=== PATIENT | female | born 1960 ===

== ENCOUNTER 2016-12-26 13:14 | Emergency (ER) | payer OTHER ==
[2016-12-26 13:21] VITALS: BP 166/91; PULSE 84; RESP 18; O2SAT 99
--- NOTE | 2016-12-26 15:01 | ED PDOC ---
Lower Extremity Pain/Injury Time Seen by Provider: 12/26/16 13:40 Chief Complaint (Nursing): Lower Extremity Problem/Injury Chief Complaint (Provider): Left Foot Pain History Per: Patient, Lactation Consultant (#[id number]) History/Exam Limitations: no limitations Onset/Duration Of Symptoms: Days (x 2 months) Current Symptoms Are (Timing): Still Present Additional Complaint(s): Emilie is a 56 year old female patient who presents to the ED complaining of left foot pain for the past 2 months, which is worsen today. The pain is now intolerable and is having difficulty walking. Emilie has not seen her PCP with regards to pain. Patient states she has been taking ibuprofen for the pain with some relief. Denies any injuries to the areas. PMD: Provider TBD Past Medical History Reviewed: Historical Data, Nursing Documentation, Vital Signs Vital Signs: Last Vital Signs Temp Pulse 84 12/26/16 13:19 Resp 18 12/26/16 13:19 BP 166/91 H 12/26/16 13:19 Pulse Ox 99 12/26/16 13:19 - Medical History PMH: Diabetes, Hypothyroidism - Surgical History Surgical History: Cholecystectomy, Other surgeries: Breast biopsy, foot surgery, left shoulder surgery - Family History Family History: States: Unknown Family Hx - Social History Current smoker - smoking cessation education provided: No Alcohol: None Drugs: Denies - Home Medications Home Medications: Ambulatory Orders Medication Instructions Recorded Levothyroxine Sodium [Levo-T] 1 tab PO DAILY 10/19/15 Metformin HCl [Glucophage] 1 tab PO BID 10/19/15 - Allergies Allergies/Adverse Reactions: Allergies Allergy/AdvReac Type Severity Reaction Status Date / Time No Known Allergies Allergy Unverified 10/19/15 10:53 Review of Systems ROS Statement: Except As Marked, All Systems Reviewed And Found Negative Musculoskeletal: Positive for: Foot Pain (Left) Physical Exam - Reviewed Nursing Documentation Reviewed: Yes Vital Signs Reviewed: Yes - Physical Exam Appears: Positive for: Well, Non-toxic, No Acute Distress Head Exam: Positive for: ATRAUMATIC, NORMAL INSPECTION, NORMOCEPHALIC Skin: Positive for: Normal Color, Warm, Dry Eye Exam: Positive for: Normal appearance Neck: Positive for: Normal Respiratory: Negative for: Respiratory Distress Pulses-Dorsalis Pedis (L): 2+ Pulses-Dorsalis Pedis (R): 2+ Extremity: Positive for: Tenderness (to the Achilles attachment of left foot), Capillary Refill (less than 2 seconds). Negative for: Pedal Edema, Deformity Neurologic/Psych: Positive for: Alert, Oriented - ECG O2 Sat by Pulse Oximetry: 99 (RA) Pulse Ox Interpretation: Normal Medical Decision Making Medical Decision Making: Time: 14:55 Initial Plan: - X-ray Left Ankle - Solu-medrol 125 mg IM Tendonitis Scribe Attestation: Documented by Jasiel Banerjee, acting as a scribe for Elena Delacruz PA-C Provider Scribe Attestation: All medical record entries made by the Scribe were at my direction and personally dictated by me. I have reviewed the chart and agree that the record accurately reflects my personal performance of the history, physical exam, medical decision making, and the department course for this patient. I have also personally directed, reviewed, and agree with the discharge instructions and disposition. Disposition - Clinical Impression Clinical Impression: Tendonitis - Patient ED Disposition Is Patient to be Admitted: No Counseled Patient/Family Regarding: Diagnosis, Need For Followup - Disposition Disposition: Routine/Home Disposition Time: 16:36 Condition: GOOD Additional Instructions: Ice, elevation, stretching. Instructions: Achilles Tendinitis (ED) Forms: [employer] (ML4D) Connect (Sinhala) Print Language: [place]
--- NOTE | 2016-12-26 16:51 | RAD ---
PROCEDURE: Left Ankle Radiographs. HISTORY: left posterior ankle pain, no trauma COMPARISON: None FINDINGS: BONES: No fracture. Plantar calcaneal spur. Entheseal ossification at the Achilles tendon insertion on the posterior calcaneus. JOINTS: Normal. No osteoarthritis. Ankle mortise maintained. Talar dome intact SOFT TISSUES: Normal. OTHER FINDINGS: None. IMPRESSION: No fracture. Plantar calcaneal spur.
== END 2016-12-26 17:03 | disposition home or self-care (01) ==
LOC: H.ER 13:14
DX: M77.52 Other enthesopathy of left foot and ankle (principal); E11.9 Type 2 diabetes mellitus without complications; E03.9 Hypothyroidism, unspecified
CPT/HCPCS: 73600; 96372; 99283; J2930

== ENCOUNTER 2017-07-10 12:11 | Emergency (ER) | payer OTHER, SELFPAY ==
[2017-07-10 12:21] VITALS: BMI 24.7
[2017-07-10 12:22] VITALS: RESP 19
[2017-07-10] MEDS ORDERED: Sodium Chloride 0.9% 1,000 ML IV STA (13:27)
[2017-07-10 13:48] LABS: BASO % 0.8 % (0.0-2.0); EOS # 0.1 K/uL (0.0-0.7); EOS % 2.7 % (0.0-4.0); HEMOGLOBIN 13.4 g/dL (12.0-16.0); LYMPH # 2.2 K/uL (1.0-4.3); LYMPH % 44.6 % (20.0-40.0); MEAN CELL VOLUME 89.3 fl (81.0-99.0); MEAN CORPUSCULAR HEMOGLOBIN 31.3 pg (27.0-31.0); MEAN CORPUSCULAR HGB CONC 35.1 g/dL (33.0-37.0); MONO # 0.3 K/uL (0.0-0.8); MONO % 6.7 % (0.0-10.0); NEUT # 2.2 K/uL (1.8-7.0); NEUT % 45.2 % (50.0-75.0); NRBC % 0.1 % (0.0-0.0); RBC 4.28 Mil/uL (3.80-5.20); RED CELL DISTRIBUTION WIDTH 13.1 % (11.5-14.5); WHITE BLOOD COUNT 4.9 K/uL (4.8-10.8)
[2017-07-10 13:55] LABS: INR 1.1 (0.9-1.2); PROTHROMBIN TIME 11.7 Seconds (9.8-13.1)
[2017-07-10 13:58] LABS: SQUAMOUS EPITHIAL < 1 /hpf (0-5); URINE BACTERIA RARE (<OCC); URINE BILIRUBIN NEGATIVE (NEGATIVE); URINE BLOOD NEGATIVE (NEGATIVE); URINE CLARITY CLEAR (Clear); URINE COLOR STRAW (YELLOW); URINE GLUCOSE (UA) 50 mg/dL (Normal); URINE LEUKOCYTE ESTERASE NEG Leu/uL (Negative); URINE PROTEIN NEGATIVE (NEGATIVE); URINE UROBILINOGEN 0.2-1.0 mg/dL (0.2-1.0)
[2017-07-10 13:59] LABS: ALB/GLOB RATIO 1.2 (1.0-2.1); ALBUMIN 4.4 g/dL (3.5-5.0); CALCIUM 8.7 mg/dL (8.4-10.2); GFR AFRICAN-AMERICAN > 60; GFR NON-AFRICAN AMERICAN > 60; LIPASE 105 U/L (23-300)
[2017-07-10 14:00] LABS: ALT/SGPT 53 U/L (9-52); AST/SGOT 38 U/L (14-36); BLOOD UREA NITROGEN 11 mg/dl (7-17)
[2017-07-10] MEDS ORDERED: Iohexol 300 100 ML IJ ONE (14:34)
[2017-07-10] MEDS ORDERED: Sodium Chloride 0.9% 100 ML ONE (14:36)
--- NOTE | 2017-07-10 14:47 | ED PDOC ---
HPI: Abdomen Time Seen by Provider: 07/10/17 12:56 Chief Complaint (Nursing): Abdominal Pain Chief Complaint (Provider): Abdominal pain History Per: Patient History/Exam Limitations: no limitations Onset/Duration Of Symptoms: Days (1) Additional Complaint(s): Pt reports R sided abdominal pain X 1 day, intermittent, associated with nausea. Denies fever, vomiting, constipation, diarrhea, symptoms. Past Medical History Reviewed: Nursing Documentation, Vital Signs Vital Signs: Last Vital Signs Temp 97.8 F 07/10/17 12:21 Pulse 81 07/10/17 12:21 Resp 19 07/10/17 12:21 BP 173/83 H 07/10/17 12:21 Pulse Ox 97 07/10/17 14:55 - Medical History PMH: Diabetes, HTN, Hypothyroidism Denies: Anxiety, Bipolar Disorder, Depression, Hyperthyroidism, Paranoia, Post Traumatic Stress Disorder, Chronic Kidney Disease, Schizophrenia - Surgical History Surgical History: Cholecystectomy, Denies: Appendectomy, CABG, Carotid Endarterectomy, Coronary Stent, Endoscopy , Pacemaker, Tonsillectomy - Family History Family History: States: Unknown Family Hx - Social History Current smoker - smoking cessation education provided: No - Home Medications Home Medications: Ambulatory Orders Medication Instructions Recorded Atorvastatin [Lipitor] 20 mg PO HS #0 tab 08/18/15 Ciprofloxacin HCl [Cipro] 500 mg PO Q12 #0 tablet 08/18/15 Docusate [Colace] 100 mg PO BID #0 cap 08/18/15 Levothyroxine [Synthroid] 100 mcg PO DAILY #0 tab 08/18/15 Metronidazole [Flagyl] 500 mg PO Q8H #0 tab 08/18/15 Ondansetron [Zofran Tab] 4 mg PO Q6H #4 tab 08/18/15 metFORMIN [glucOPHAGE] 500 mg PO BID #0 tab 08/18/15 oxyCODONE/Acetaminophen [Percocet 1 tab PO Q4 PRN #0 tab 08/18/15 5/325 mg Tab] Methylprednisolone [Medrol Dose 4 mg PO DAILY #21 mg 08/31/15 Pack (21 tabs)] hydrOXYzine HCl [Atarax] 25 mg PO Q8H #12 tab 08/31/15 Levothyroxine Sodium [Levo-T] 1 tab PO DAILY 10/19/15 Metformin HCl [Glucophage] 1 tab PO BID 10/19/15 Dicyclomine [Bentyl] 20 mg PO Q12 PRN #20 tab 12/02/15 Ondansetron ODT [Zofran ODT] 4 mg PO Q6 PRN #16 odt 12/02/15 Ibuprofen [Motrin] 1 tab PO TID PRN #30 tab 02/02/16 Ibuprofen [Motrin] 600 mg PO Q6H PRN #20 tab 07/10/17 - Allergies Allergies/Adverse Reactions: Allergies Allergy/AdvReac Type Severity Reaction Status Date / Time acetaminophen [From Percocet] Allergy RASH Verified 08/31/15 17:02 oxycodone HCl [From Percocet] Allergy RASH Verified 08/31/15 17:02 Review of Systems Constitutional: Negative for: Fever, Chills Cardiovascular: Negative for: Chest Pain, Palpitations Respiratory: Negative for: Cough, Shortness of Breath Gastrointestinal: Positive for: Nausea, Abdominal Pain. Negative for: Vomiting , Diarrhea Genitourinary Female: Negative for: Dysuria, Hematuria, Vaginal Discharge, Vaginal Bleeding Musculoskeletal: Negative for: Neck Pain, Back Pain Skin: Negative for: Rash, Lesions Neurological: Negative for: Headache Physical Exam - Reviewed Nursing Documentation Reviewed: Yes Vital Signs Reviewed: Yes - Physical Exam Appears: Positive for: Well, No Acute Distress Skin: Positive for: Normal Color, Warm, Dry Eye Exam: Positive for: Normal appearance, EOMI, PERRL Cardiovascular/Chest: Positive for: Regular Rate, Rhythm Respiratory: Positive for: Normal Breath Sounds Gastrointestinal/Abdominal: Positive for: Bowel Sounds, Tenderness (RUQ). Negative for: Mass, Distended, Guarding, Rebound Back: Positive for: Normal Inspection Extremity: Positive for: Normal ROM Neurologic/Psych: Positive for: Alert, Oriented - Laboratory Results Result Diagrams: 07/10/17 13:35 07/10/17 13:35 - ECG Interpretation Of ECG: NSR @ 69, no ST-T changes. O2 Sat by Pulse Oximetry: 97 Pulse Ox Interpretation: Normal Medical Decision Making Medical Decision Makin yo female with RUQ pain, s/p cholecystectomy. - labs - EKG - CT abd/pelvis - IVF - Zofran Accession No. : [id number] Patient Name / ID : HIRAM FERRARI / [id number] Exam Date : 07/10/2017 14:41:40 ( Approved ) Study Comment : Sex / Age : F / 56Y Creator : Robin Man MD Dictator : Robin Man MD [employer] Consultant : [employer] Consultant : Robin Man MD Approver2 : Report Date : 07/10/2017 15:48:06 My Comment : PROCEDURE: CT Abdomen and Pelvis with contrast HISTORY: RUQ pain, h/o cholecystectomy COMPARISON: Abdomen pelvis CT with contrast 12/02/2015. TECHNIQUE: Contrast dose: Omnipaque 300, 95 cc Radiation dose: Total exam DLP = 358.25 mGy-cm. This CT exam was performed using one or more of the following dose reduction techniques: Automated exposure control, adjustment of the mA and/or kV according to patient size, and/or use of iterative reconstruction technique. FINDINGS: LOWER THORAX: Stable fibrotic changes are appreciate the right lower lobe abutting a focal area of pleural thickening laterally once again. LIVER: Diffuse fatty infiltration liver is reiterated. No definitive mass is seen or intrahepatic biliary dilatation. GALLBLADDER AND BILE DUCTS: Prior cholecystectomy reiterated. PANCREAS: Unremarkable. No gross lesion or ductal dilatation. SPLEEN: Unremarkable. ADRENALS: Unremarkable. No mass. KIDNEYS AND URETERS: 1.4 cm lucency seen at the midpole right kidney once again measuring 50 Hounsfield units likely reflecting a hyperdense cyst. Given this has not changed in size in over urine half, this is likely a benign process. Question a follow-up MRI without gadolinium is advised for more definitive characterization of this finding. The bilateral kidneys otherwise unremarkable. VASCULATURE: Unremarkable. No aortic aneurysm. BOWEL: Relatively prominent fecal loading may indicate an element of constipation. No obstruction. No gross mural thickening. APPENDIX: Normal appendix. PERITONEUM: Minimal perineum occupy small umbilical and periumbilical hernias which slightly larger in the interval. The neck of the paraumbilical hernia measures 1.7 cm within neck of the umbilical hernia measuring 1.2 cm. No free fluid. No free air. LYMPH NODES: Unremarkable. No enlarged lymph nodes. BLADDER: Unremarkable. REPRODUCTIVE: Unremarkable. BONES: No acute fracture. OTHER FINDINGS: None. IMPRESSION: 1. Prior cholecystectomy reiterated. Extensive diffuse fatty infiltration is seen throughout the liver once again. No definite biliary tree dilatation appreciable. 2. 1.4 cm lucency midpole right kidney with Hounsfield unit measurement suggesting possible complex cyst. It is not changed in size in over urine half however follow-up MRI is advised with and without contrast electively, for more definitive characterization. 3. Tiny umbilical and periumbilical hernias as discussed above. Copy of CT report given to patient for incidental findings. Disposition - Clinical Impression Clinical Impression: Abdominal pain in female - Disposition Referrals: [facility] [Outside] Disposition: Routine/Home Disposition Time: 16:02 Condition: IMPROVED Prescriptions: Ibuprofen [Motrin] 600 mg PO Q6H PRN #20 tab PRN Reason: Pain, Moderate (4-7) Instructions: Acute Abdomen (Belly Pain) Forms: [employer]by ([place] Islander), walkby (Swedish) Print Language: PARAGUAYAN
--- NOTE | 2017-07-10 15:50 | CT ---
PROCEDURE: CT Abdomen and Pelvis with contrast HISTORY: RUQ pain, h/o cholecystectomy COMPARISON: Abdomen pelvis CT with contrast 12/02/2015. TECHNIQUE: Contrast dose: Omnipaque 300, 95 cc Radiation dose: Total exam DLP = 358.25 mGy-cm. This CT exam was performed using one or more of the following dose reduction techniques: Automated exposure control, adjustment of the mA and/or kV according to patient size, and/or use of iterative reconstruction technique. FINDINGS: LOWER THORAX: Stable fibrotic changes are appreciate the right lower lobe abutting a focal area of pleural thickening laterally once again. LIVER: Diffuse fatty infiltration liver is reiterated. No definitive mass is seen or intrahepatic biliary dilatation. GALLBLADDER AND BILE DUCTS: Prior cholecystectomy reiterated. PANCREAS: Unremarkable. No gross lesion or ductal dilatation. SPLEEN: Unremarkable. ADRENALS: Unremarkable. No mass. KIDNEYS AND URETERS: 1.4 cm lucency seen at the midpole right kidney once again measuring 50 Hounsfield units likely reflecting a hyperdense cyst. Given this has not changed in size in over urine half, this is likely a benign process. Question a follow-up MRI without gadolinium is advised for more definitive characterization of this finding. The bilateral kidneys otherwise unremarkable. VASCULATURE: Unremarkable. No aortic aneurysm. BOWEL: Relatively prominent fecal loading may indicate an element of constipation. No obstruction. No gross mural thickening. APPENDIX: Normal appendix. PERITONEUM: Minimal perineum occupy small umbilical and periumbilical hernias which slightly larger in the interval. The neck of the paraumbilical hernia measures 1.7 cm within neck of the umbilical hernia measuring 1.2 cm. No free fluid. No free air. LYMPH NODES: Unremarkable. No enlarged lymph nodes. BLADDER: Unremarkable. REPRODUCTIVE: Unremarkable. BONES: No acute fracture. OTHER FINDINGS: None. IMPRESSION: 1. Prior cholecystectomy reiterated. Extensive diffuse fatty infiltration is seen throughout the liver once again. No definite biliary tree dilatation appreciable. 2. 1.4 cm lucency midpole right kidney with Hounsfield unit measurement suggesting possible complex cyst. It is not changed in size in over urine half however follow-up MRI is advised with and without contrast electively, for more definitive characterization. 3. Tiny umbilical and periumbilical hernias as discussed above.
[2017-07-10 16:30] VITALS: BP 128/76; PULSE 78; TEMP 97; O2SAT 98
--- NOTE | 2017-07-13 12:11 | CARD ---
APPROVED REPORT EKG Measurement Heart [id number] SD 150P60 [id number] <Conclusion> Normal sinus rhythm Left axis deviation Abnormal ECG
== END 2017-07-10 16:31 | disposition home or self-care (01) ==
LOC: H.ER 12:11
DX: K76.0 Fatty (change of) liver, not elsewhere classified (principal); N28.1 Cyst of kidney, acquired; K42.9 Umbilical hernia without obstruction or gangrene; E03.9 Hypothyroidism, unspecified; E11.9 Type 2 diabetes mellitus without complications; I10 Essential (primary) hypertension; Z79.84 Long term (current) use of oral hypoglycemic drugs; Z88.5 Allergy status to narcotic agent; Z90.49 Acquired absence of other specified parts of digestive tract
CPT/HCPCS: 74177; 80053; 81003; 82948; 83690; 85025; 85610; 85730; 93005; 96374; 99283; J2405; J7040; Q9967

== ENCOUNTER 2018-01-15 14:28 | Emergency (ER) | payer SELFPAY ==
[2018-01-15 14:28] VITALS: BMI 24.7
[2018-01-15] MEDS ORDERED: Sodium Chloride 0.9% 1,000 ML IV STA (15:01)
--- NOTE | 2018-01-15 15:04 | ED PDOC ---
HPI: Abdomen Time Seen by Provider: 01/15/18 14:56 Chief Complaint (Nursing): Abdominal Pain History Per: Patient Onset/Duration Of Symptoms: Days (1) Current Symptoms Are (Timing): Still Present Severity: Mild Pain Scale Rating Of: 3 Location Of Pain/Discomfort: Epigastric Quality Of Discomfort: Sharp Associated Symptoms: denies: Fever, Nausea, Vomiting, Diarrhea Exacerbating Factors: None Alleviating Factors: None Additional Complaint(s): Sharp epigastric abd pain radiating to back since this AM. Denies NVD. Denies fever. Denies blood instool. Made worse by food. Past Medical History Vital Signs: Last Vital Signs Temp 98.5 F 01/15/18 14:47 Pulse 87 01/15/18 14:47 Resp BP 144/88 01/15/18 14:47 Pulse Ox 96 01/15/18 14:47 - Medical History PMH: Diabetes, HTN, Hypothyroidism Denies: Anxiety, Bipolar Disorder, Depression, Hyperthyroidism, Paranoia, Post Traumatic Stress Disorder, Chronic Kidney Disease, Schizophrenia - Surgical History Surgical History: Cholecystectomy, Denies: Appendectomy, CABG, Carotid Endarterectomy, Coronary Stent, Endos copy, Pacemaker, Tonsillectomy - Family History Family History: States: Unknown Family Hx - Home Medications Home Medications: Ambulatory Orders Medication Instructions Recorded Atorvastatin [Lipitor] 20 mg PO HS #0 tab 08/18/15 Ciprofloxacin HCl [Cipro] 500 mg PO Q12 #0 tablet 08/18/15 Docusate [Colace] 100 mg PO BID #0 cap 08/18/15 Levothyroxine [Synthroid] 100 mcg PO DAILY #0 tab 08/18/15 Metronidazole [Flagyl] 500 mg PO Q8H #0 tab 08/18/15 Ondansetron [Zofran Tab] 4 mg PO Q6H #4 tab 08/18/15 metFORMIN [glucOPHAGE] 500 mg PO BID #0 tab 08/18/15 oxyCODONE/Acetaminophen [Percocet 1 tab PO Q4 PRN #0 tab 08/18/15 5/325 mg Tab] Methylprednisolone [Medrol Dose 4 mg PO DAILY #21 mg 08/31/15 Pack (21 tabs)] hydrOXYzine HCl [Atarax] 25 mg PO Q8H #12 tab 08/31/15 Levothyroxine Sodium [Levo-T] 1 tab PO DAILY 10/19/15 Metformin HCl [Glucophage] 1 tab PO BID 10/19/15 Dicyclomine [Bentyl] 20 mg PO Q12 PRN #20 tab 12/02/15 Ondansetron ODT [Zofran ODT] 4 mg PO Q6 PRN #16 odt 12/02/15 Ibuprofen [Motrin] 1 tab PO TID PRN #30 tab 02/02/16 Ibuprofen [Motrin] 600 mg PO Q6H PRN #20 tab 07/10/17 - Allergies Allergies/Adverse Reactions: Allergies Allergy/AdvReac Type Severity Reaction Status Date / Time acetaminophen [From Percocet] Allergy RASH Verified 01/15/18 14:49 oxycodone HCl [From Percocet] Allergy RASH Verified 01/15/18 14:49 Review of Systems ROS Statement: Except As Marked, All Systems Reviewed And Found Negative Gastrointestinal: Positive for: Abdominal Pain Physical Exam - Reviewed Nursing Documentation Reviewed: Yes Vital Signs Reviewed: Yes - Physical Exam Appears: Positive for: Non-toxic, No Acute Distress Head Exam: Positive for: ATRAUMATIC, NORMAL INSPECTION, NORMOCEPHALIC Skin: Positive for: Normal Color, Warm, DRY Eye Exam: Positive for: EOMI, Normal appearance, PERRL ENT: Positive for: Normal ENT Inspection Neck: Positive for: Normal, Painless ROM Cardiovascular/Chest: Positive for: Regular Rate, Rhythm Respiratory: Positive for: CNT, Normal Breath Sounds Gastrointestinal/Abdominal: Positive for: Soft, Tenderness (epigastric) Back: Positive for: Normal Inspection. Negative for: L CVA Tenderness, R CVA Tenderness Extremity: Positive for: Normal ROM Neurologic/Psych: Positive for: Alert, Oriented - Laboratory Results Result Diagrams: 01/15/18 15:32 01/15/18 15:32 - ECG O2 Sat by Pulse Oximetry: 96 Disposition - Clinical Impression Clinical Impression: Abdominal pain in female - Patient ED Disposition Is Patient to be Admitted: Transfer of Care - Disposition Disposition: Transfer of Care Disposition Time: 16:00 Condition: FAIR Forms: [facility] (Gambian) Patient Signed Over To: Liban Bustillo III
[2018-01-15 15:43] LABS: BASO % 0.5 % (0.0-2.0); EOS # 0.2 K/uL (0.0-0.7); EOS % 2.5 % (0.0-4.0); HEMOGLOBIN 13.3 g/dL (12.0-16.0); LYMPH # 2.9 K/uL (1.0-4.3); LYMPH % 36.3 % (20.0-40.0); MEAN CELL VOLUME 92.1 fl (81.0-99.0); MEAN CORPUSCULAR HEMOGLOBIN 30.9 pg (27.0-31.0); MEAN CORPUSCULAR HGB CONC 33.5 g/dL (33.0-37.0); MEAN PLATELET VOLUME 8.4 fl (7.2-11.7); MONO # 0.5 K/uL (0.0-0.8); MONO % 6.4 % (0.0-10.0); NEUT # 4.3 K/uL (1.8-7.0); NEUT % 54.3 % (50.0-75.0); RBC 4.31 Mil/uL (3.80-5.20); RED CELL DISTRIBUTION WIDTH 12.8 % (11.5-14.5)
[2018-01-15 15:54] LABS: ALB/GLOB RATIO 1.2 (1.0-2.1); ALBUMIN 4.5 g/dL (3.5-5.0); ALT/SGPT 109 U/L (9-52); AST/SGOT 62 U/L (14-36); BLOOD UREA NITROGEN 17 mg/dl (7-17); CALCIUM 9.9 mg/dL (8.4-10.2); GFR NON-AFRICAN AMERICAN > 60; LIPASE 153 U/L (23-300)
[2018-01-15 17:06] VITALS: RESP 18; O2SAT 100
--- NOTE | 2018-01-15 17:09 | US ---
Date of service: 01/15/2018 HISTORY: h/o cholecysytectomy, LFTs elevated COMPARISON: 08/16/2015 ultrasound of the abdomen pre cholecystectomy TECHNIQUE: Sonographic evaluation of the right upper quadrant of the abdomen. FINDINGS: LIVER: Measures 16.7 cm in length. Hepatopedal blood flow. Fatty infiltration manifest ultrasonographically as increased echogenicity of the liver parenchyma. Focal fatty sparing adjacent to the falciform ligament no mass. No intrahepatic bile duct dilatation. GALLBLADDER: Status post cholecystectomy. No abnormality is seen in the gallbladder fossa. COMMON BILE DUCT: Measures 3.2 mm. No stones. No dilatation. PANCREAS: Unremarkable as visualized. No mass. No ductal dilatation. RIGHT KIDNEY: Measures 4.2 x 12.2 cm in length. Normal echogenicity. No calculus, mass, or hydronephrosis. AORTA: No aneurysmal dilatation. IVC: Unremarkable. OTHER FINDINGS: None . IMPRESSION: Status post cholecystectomy. No acute/significant findings.
[2018-01-15 20:09] VITALS: BP 117/59; PULSE 80; TEMP 97.9
--- NOTE | 2018-01-16 12:24 | CARD ---
APPROVED REPORT Date of service: 01/15/2018 EKG Measurement Heart [id number] MD 154P50 [id number] <Conclusion> Normal sinus rhythm Right superior axis deviation Poor R wave progression Abnormal ECG
== END 2018-01-15 20:05 | disposition home or self-care (01) ==
LOC: H.ER 14:28
DX: R10.9 Unspecified abdominal pain (principal); E03.9 Hypothyroidism, unspecified; E11.9 Type 2 diabetes mellitus without complications; I10 Essential (primary) hypertension; Z79.84 Long term (current) use of oral hypoglycemic drugs; Z88.5 Allergy status to narcotic agent
CPT/HCPCS: 76705; 80053; 83690; 85025; 93005; 96374; 99283; J7030